=== PATIENT | male | born 1940 | race Caucasian/White ===

== ENCOUNTER 2017-10-27 08:36 | Day surgery (SDC) | payer OTHER ==
[~2017-10-27] VITALS: Ht 175.3 cm; Wt 90.7 kg
[~2017-10-27 08:36] MED LIST: AMIODARONE HCL100 MG PO; ASPIRIN325 MG PO; DILTIAZEM 24HR180 MG PO; MULTIVITAMINS1 EAC7 PO; VITAMIN D1000 UNIT PO
--- NOTE | 2017-10-28 09:08 | OR ---
[facility] [address] [place], [place] [address] Signed DATE OF OPERATION: 10/27/2017 SURGEON: Kennedy Elliott MD PREOPERATIVE DIAGNOSES: 1. Personal history of colonic polyps, 2011. 2. Diverticulosis. POSTOPERATIVE DIAGNOSES: 1. Moderate pandiverticulosis. 2. 4 mm polyp mid right colon. 3. 20 mm polyp at 45 cm (tattoo). 4. 15 mm polyp at 30 cm (tattoo). 5. Minimal internal anal skin tag. PROCEDURE: Colonoscopy with snare polypectomy at 45 and 30 cm with injection at both 45 and 30 cm and hot biopsies. ESTIMATED BLOOD LOSS: Minimal. INDICATIONS: Mimi is a 77-year-old gentleman who in 2012 had 14 colonic polyps removed through the [facility]. Several of which were adenomatous. He is also known to have diverticulosis. He said he has never had any sedation during the colonoscopy and therefore asked me to proceed without sedation. He was asked to come back every 5 years for repeat colonoscopy. He said he has good bowel movements. He has no lower GI complaints. There is no family history of colon cancer or polyps in the family. In the office, I gave him a pamphlet on colorectal polyps and cancer. He is very aware that the polyps grown become cancers. We also reviewed the written instructions for the bowel prep and we had him hold the aspirin for 3 days prior to the procedure. In addition, we discussed IV sedation at length. Again, he said he has done without any IV sedation and that is what he wanted me to do. He is well aware that if we get part way through the procedure, we have to add sedation. He is more than happy to do that. He also gave us the name and phone number of his brother to come pick him up if necessary. He also understands there is risk including, but not limited to gas bloating, crampy abdominal pain, bleeding, perforation, requiring surgery, and missed diagnosis. He had expressed understanding and wished to proceed. Electronically Signed By: KENNEDY ELLIOTT MD 10/28/17 0908 PATIENT NAME: MIMI OWENS KATH OPERATIVE REPORT DATE OF : 44 REPORT #: [id number] PHYSICIAN: KENNEDY ELLIOTT MD PCP: LUIS FELIPE BALLESTEROS MD REPORT IS CONFIDENTIAL AND NOT TO BE RELEASED WITHOUT AUTHORIZATION [address] [address] Signed PROCEDURE NOTE: Mimi was taken into our endoscopy suite and placed in the left lateral decubitus position. He was given no IV sedation at his request. A digital rectal exam was performed and he does have a slightly enlarged indurated prostate, but no dominant nodules. The adult colonoscope was introduced and advanced all around into the cecum under direct visualization of the camera. He actually tolerated that quite well. His prep was good. The scope was slowly withdrawn. We can easily see the Grindstone's foot and ileocecal valve. We took out a 4 mm polyp in mid right colon with a hot biopsy forceps. We noticed that he has moderate diverticula throughout the colon back at 45 cm. He had a fairly large polyp every bit of 20 mm. It took three bites of the snare to get it all completely. We used our basket and captured most if not all of that polyp. There was good hemostasis at the base of the polyp. We went ahead and injected some tattoo at that area to reggie its location. During that process of using the cautery, he did get a little nauseated and diaphoretic, so it took a couple of minutes to pause the procedure. We gave him some Zofran, which helped. The scope was withdrawn further and back at 30 cm. Another large polyp probably 15 mm in diameter, maybe larger and we got our snare over that a bit easier and took it off all in one piece. We suctioned it onto the scope and we were able to remove it, sent it off to the pathology Department and again we went back with the camera and placed a tattoo at 30 cm. Right next to 30 cm polyp, was a tiny 3 mm polyp at 20 cm. I simply burned that with a hot biopsy forceps. The rectum itself was unremarkable. Upon retroflexion of the scope, he had just a tiny internal anal skin tag. After that, the gas was suctioned out and the colonoscope removed. Overall, Mimi tolerated the procedure amazingly well. RECOMMENDATIONS: We will have Mimi resume his aspirin in 1 week. He will follow up my office in 7 to 14 days to review his results. He might consider a short interval followup either months out to as much as 18 months to reassess the colon, make sure all his polyps have been removed. Kennedy Elliott MD ALB/ESTRELLITAL /[id number] cc: Luis Felipe Ballesteros MD Electronically Signed By: KENNEDY ELLIOTT MD 10/28/17 0908 PATIENT NAME: MIMI OWENS KATH OPERATIVE REPORT DATE OF : 44 REPORT #: [id number] PHYSICIAN: KENNEDY ELLIOTT MD PCP: LUIS FELIPE BALLESTEROS MD REPORT IS CONFIDENTIAL AND NOT TO BE RELEASED WITHOUT AUTHORIZATION [place] [address] [place] [place], [place] [address] Signed Kennedy Elliott MD Copies: LUIS FELIPE BALLESTEROS MD, ANDREW L MD ~ Electronically Signed By: KENNEDY ELLIOTT MD 10/28/17 0908 PATIENT NAME: MIMI OWENS OPERATIVE REPORT DATE OF : 44 REPORT #: [id number] PHYSICIAN: KENNEDY ELLIOTT MD PCP: LUIS FELIPE BALLESTEROS MD REPORT IS CONFIDENTIAL AND NOT TO BE RELEASED WITHOUT AUTHORIZATION
== END 2017-10-27 18:00 | disposition home or self-care (01) ==
LOC: OPS 08:36 → DS 08:36 → OPS 09:45
PROVIDERS: Colon & Rectal Surgery
PROC: 0DBK8ZZ Excision of Ascending Colon, Via Natural or Artificial Opening Endoscopic (ICD-10-PCS; 2017-10-27)
PROC: 3E0H8GC Introduction of Other Therapeutic Substance into Lower GI, Via Natural or Artificial Opening Endoscopic (ICD-10-PCS; 2017-10-27)
PROC: 0DBE8ZZ Excision of Large Intestine, Via Natural or Artificial Opening Endoscopic (ICD-10-PCS; principal; 2017-10-27 09:45)
DX: Z12.11 Encounter for screening for malignant neoplasm of colon (principal); D12.2 Benign neoplasm of ascending colon; D12.6 Benign neoplasm of colon, unspecified; K64.4 Residual hemorrhoidal skin tags; K57.30 Diverticulosis of large intestine without perforation or abscess without bleeding; I10 Essential (primary) hypertension; E78.5 Hyperlipidemia, unspecified; E55.9 Vitamin D deficiency, unspecified; I48.91 Unspecified atrial fibrillation; K21.9 Gastro-esophageal reflux disease without esophagitis; F41.9 Anxiety disorder, unspecified; Z98.890 Other specified postprocedural states; Z79.82 Long term (current) use of aspirin; Z79.899 Other long term (current) drug therapy
CPT/HCPCS: 88305; J2250; J2405; J3010

== ENCOUNTER 2019-05-03 09:54 | Day surgery (SDC) | payer OTHER ==
[~2019-05-03] VITALS: Ht 175.3 cm; Wt 90.7 kg
--- NOTE | 2019-05-04 07:28 | OR ---
[facility] [address] [place], [place] [address] Signed DATE OF OPERATION: 05/03/2019 SURGEON: Kennedy Elliott MD PREOPERATIVE DIAGNOSES: 1. Personal history of colonic polyps in 2012 and 2018. 2. Bourgeois diverticulosis. 3. Internal anal skin tags. 4. Tattoos at 30 and 45 cm. POSTOPERATIVE DIAGNOSES: 1. 4 mm polypoid lesion at 30 cm. 2. 4 mm polyp, distal right colon. 3. 4 mm polyp, mid transverse colon. 4. Moderate pandiverticulosis. 5. Small internal anal skin tags. PROCEDURE PERFORMED: Colonoscopy with hot biopsy. ESTIMATED BLOOD LOSS: None. INDICATIONS: Mimi is a 78-year-old gentleman who actually looked younger than his stated age. He just spent 6 weeks up in the [facility] [place]. He said he enjoys that very much. He maintains good functional status and muscle mass. He had 14 colonic polyps removed through his [facility] in 2011. Some of those were adenomatous. He also had diverticulosis. Amazingly, he never had IV sedation during the first colonoscopy. When he came to us in 2018, he insisted no IV sedation and he actually did very well. We did give him Zofran midway through that procedure that did help him. Once again he has moderate pandiverticulosis along with his minimal internal skin tags. He had a significant polyp removed at 30 cm and one at 45 cm. We left tattoos at both these areas. They were both tubulovillous adenomatous polyps measuring 15 to 20 mm in size. We also took a small adenomatous polyp out of his mid right colon. I had explained to Mimi that polyps grow and become cancer over 8 to 12 years. We decided to bring him back in a short interval and make sure the two areas at 30 and 45 cm were completely relieved of all polyps. We also reviewed diverticulosis in the office. He wanted another brochure on diverticulosis, which we provided to him. I have encouraged him once again to use a fiber supplement such as Benefiber, Citrucel, or Metamucil and add Electronically Signed By: KENNEDY ELLIOTT MD 05/04/19 0728 PATIENT NAME: MIMI OWENS OPERATIVE REPORT DATE OF : 44 REPORT #: [id number] PHYSICIAN: KENNEDY ELLIOTT MD PCP: LUIS FELIPE BALLESTEROS MD REPORT IS CONFIDENTIAL AND NOT TO BE RELEASED WITHOUT AUTHORIZATION [facility] [address] [place], [place] [address] Signed that to his daily regimen. He is in chronic atrial fibrillation, on aspirin. However today he was in sinus rhythm. We did have him hold the aspirin 3 days prior to the procedure. Since he had biopsies, he will hold it one week afterwards. He has no family history of colon cancer or polyps. Once again, he insisted no IV sedation. We did decide to give him 8 mg of Zofran in the preop area. That seemed to help significantly today. He had expressed understanding and wished to proceed. PROCEDURE NOTE: Mimi was taken into our endoscopy suite and placed in the left lateral decubitus position. Again, no IV sedation was given. He did receive 8 mg of Zofran preoperatively. A digital rectal exam was performed and he does have a slightly enlarged and indurated prostate gland. The left is slightly more prominent than the right. The adult colonoscope was then introduced and advanced all around into the cecum under direct visualization of the camera without difficulty. Fortunately, Mimi is quite easy to pass the scope. His prep was good. Just a few areas of liquid particulate stool matter, most of which was suctioned out. The scope was slowly withdrawn. We took out a 4 mm polyp in the distal right colon and in the mid transverse colon. We could easily see his two tattoos at 45 and 30 cm. 45 cm was unremarkable. There was a little bit of a polypoid area at 30 cm, although we think it is probably fine. We went ahead and biopsied that and destroyed it completely with hot biopsy forceps. Once again he has moderate pandiverticulosis. Once in the rectum, the scope had been retroflexed and again he has just some very small internal anal skin tags. The gas was then suctioned out and the colonoscope removed. Mimi tolerated the procedure quite well and talk to us the whole time. He only moaned a little when we came around hepatic flexure and down into the cecum itself. After this, the gas had been suctioned out and the colonoscope removed. Again, Mimi tolerated the procedure quite well. RECOMMENDATIONS: I will see Mimi back in my office in 7 to 14 days to review his results. He is welcome to follow up anywhere from 3 to 5 years. He thought maybe at his age he might not do any more colonoscopies. We will address that once again in the office. MD YLLY Diez/ESTRELLITAL /[id number] Electronically Signed By: KENNEDY ELLIOTT MD 05/04/19 0728 PATIENT NAME: MIMI OWENS OPERATIVE REPORT DATE OF : 44 REPORT #: [id number] PHYSICIAN: KENNEDY ELLIOTT MD PCP: LUIS FELIPE BALLESTEROS MD REPORT IS CONFIDENTIAL AND NOT TO BE RELEASED WITHOUT AUTHORIZATION [address] [address] Signed cc: MD Luis Felipe Diez MD Copies: KENNEDY ELLIOTT MD, MICAIAH MATTHEW MD ~ Electronically Signed By: KENNEDY ELLIOTT MD 05/04/19 0728 PATIENT NAME: MIMI OWENS OPERATIVE REPORT DATE OF : 44 REPORT #: [id number] PHYSICIAN: KENNEDY ELLIOTT MD PCP: LUIS FELIPE BALLESTEROS MD REPORT IS CONFIDENTIAL AND NOT TO BE RELEASED WITHOUT AUTHORIZATION
--- NOTE | 2019-05-04 15:59 | PATH ---
[facility] [address] [place], [place] [address] Signed SPECIMEN(S): A COLON POLYP AT 30 CM SPECIMEN(S): B MID TRANSVERSE POLYP SPECIMEN(S): C DISTAL ASCENDING POLYP SPECIMEN SOURCE: A. COLON POLYP AT 30 CM B. MID TRANSVERSE POLYP C. DISTAL ASCENDING POLYP CLINICAL HISTORY: Hx: Diverticulosis and polyps. Postop: Diverticulosis, colon polyps. MICROSCOPIC DESCRIPTION: Histologic sections of all submitted blocks are examined by light microscopy. These findings, together with the gross examination, support the pathologic diagnosis. FINAL PATHOLOGIC DIAGNOSIS: A. Mucosa, colon at 30 cm, biopsy: - Surface features consistent with hyperplastic polyp (See comment). B. Mucosa, mid transverse colon, biopsy: - Surface features suggestive but not entirely diagnostic of hyperplastic polyp (See comment). C. Mucosa, distal ascending colon, biopsy: - Tubular adenoma. COMMENT: A and B Multiple sections over three slides are examined. No adenomatous change or full thickness hyperplastic change is seen. LJA:cml:C2NR GROSS DESCRIPTION: Three specimens are received in three containers, labeled "MILA." A. The specimen, labeled "MILA, colon polyp at 30 cm," is received in formalin and consists of a single 0.3 cm jj fragment. Specimen is entirely submitted in cassette (A1). B. The specimen, labeled "MILA, mid transverse colon polyp," is received in formalin and consists of three, 0.2-0.3 cm jj fragments. Specimen is entirely submitted in cassette (B1). C. The specimen, labeled "MILA, distal ascending colon polyp," is received in formalin and consists of a single 0.3 cm jj-brown tissue fragment Specimen is entirely submitted in cassette (C1). PATIENT NAME: MIMI OWENS PATHOLOGY DATE OF : 44 REPORT #: [id number] PHYSICIAN: ANDREA PATHOLOGY PCP: LUIS FELIPE BALLESTEROS MD REPORT IS CONFIDENTIAL AND NOT TO BE RELEASED WITHOUT AUTHORIZATION [facility] [address] [place] [address] Signed AM (under the direct supervision of a pathologist) The Gross Description was prepared using a voice recognition system. The report was reviewed for accuracy; however, sound-alike word errors, addition and/or deletions may occur. If there is any question about this report, please contact Client Services. PERFORMING LABORATORY: The technical component was performed by [facility] [address] (Environmental Services Attendant: Carmencita Toribio MD; CLIA# [id number]). Professional interpretation was performed by [facility], [address] [address] (Environmental Services Attendant: Richi Mckeon MD; CLIA# [id number]). Diagnostician: Richi Mckeon MD Pathologist Electronically Signed 05/04/2019 Copies: ~ PATIENT NAME: MIMI OWENS PATHOLOGY DATE OF : 44 REPORT #: [id number] PHYSICIAN: ANDREA LOMAX PCP: LUIS FELIPE BALLESTEROS MD REPORT IS CONFIDENTIAL AND NOT TO BE RELEASED WITHOUT AUTHORIZATION
== END 2019-05-03 12:20 | disposition home or self-care (01) ==
LOC: DS 09:54
PROVIDERS: Colon & Rectal Surgery
PROC: 0DBK8ZZ Excision of Ascending Colon, Via Natural or Artificial Opening Endoscopic (ICD-10-PCS; 2019-05-03)
PROC: 0DBE8ZZ Excision of Large Intestine, Via Natural or Artificial Opening Endoscopic (ICD-10-PCS; 2019-05-03)
PROC: 0DBL8ZZ Excision of Transverse Colon, Via Natural or Artificial Opening Endoscopic (ICD-10-PCS; principal; 2019-05-03 10:30)
DX: D12.2 Benign neoplasm of ascending colon (principal); K63.5 Polyp of colon; K57.30 Diverticulosis of large intestine without perforation or abscess without bleeding; K64.8 Other hemorrhoids; K64.4 Residual hemorrhoidal skin tags; I10 Essential (primary) hypertension; K21.9 Gastro-esophageal reflux disease without esophagitis; E78.5 Hyperlipidemia, unspecified; E55.9 Vitamin D deficiency, unspecified; Z98.890 Other specified postprocedural states; Z79.899 Other long term (current) drug therapy; Z79.82 Long term (current) use of aspirin
CPT/HCPCS: J2405; J7120

== ENCOUNTER 2023-08-19 03:30 | Emergency (ER) | payer OTHER ==
[~2023-08-19] VITALS: Ht 175.3 cm; Wt 88.7 kg
[~2023-08-19 03:30] MED LIST changes: -AMIODARONE HCL100 MG PO; +FLOMAX0.4 MG PO; -MULTIVITAMINS1 EAC7 PO; +PACERONE200 MG PO; +STRESS B WITH1 EACH PO
--- OUTSIDE RECORDS SUMMARY | 2023-08-19 03:39 | XMS ---
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 Samina has no Care Guidelines for this patient. Keesha VISIT COUNT (12 MO.) [address] [facility] [place] TOTAL 3 NOTE: Visits indicate total known visits. ED/C VISIT TRACKING (12 MO.) 08/19/2023 03:[address] [facility] [place] TYPE: Emergency COMPLAINT: - CATHETER PROBLEM 08/18/2023 07:29 [facility] [place] TYPE: Emergency COMPLAINT: - DIFFICULTY URINATING, BLOOD IN URINE 10/31/2022 07:47 [facility] [place] TYPE: Emergency COMPLAINT: - FALL, R HIP PAIN INPATIENT VISIT TRACKING (12 MO.) 10/31/2022 12:33 [facility] [place] TYPE: Medical Surgical COMPLAINT: - RIGHT HIP FRACTURE DIAGNOSES: - Contact with and (suspected) exposure to COVID-19 - Contact with and (suspected) exposure to COVID-19 - Disorder of kidney and ureter, unspecified - Disorder of kidney and ureter, unspecified - Exposure to other specified factors, initial encounter - Exposure to other specified factors, initial encounter - Fracture of unspecified part of neck of right femur, initial encounter for closed fracture - MCC (current) use of aspirin - cafe helper (current) use of aspirin - Nondisplaced fracture of anterior wall of right acetabulum, initial encounter for closed fracture - Nondisplaced fracture of anterior wall of right acetabulum, initial encounter for closed fracture - Other manager law (current) drug therapy - Other mcc (current) drug therapy - Syncope and collapse - Syncope and collapse - Unspecified atrial fibrillation - Unspecified atrial fibrillation - Unspecified place in unspecified non-institutional (private) residence as the place of occurrence of the external cause - Unspecified place in unspecified non-institutional (private) residence as the place of occurrence of the external cause [email or web address]
[2023-08-19] MEDS ORDERED: LIDOCAINE 2% VISCOUS 6 ML SYR TOP ONE (04:00)
[2023-08-19 05:16] VITALS: BP 125/65
== END 2023-08-19 05:10 | disposition home or self-care (01) ==
LOC: ED 03:30
DX: T83.091A Other mechanical complication of indwelling urethral catheter, initial encounter (principal); R31.9 Hematuria, unspecified; Y73.2 Prosthetic and other implants, materials and accessory gastroenterology and urology devices associated with adverse incidents; I48.91 Unspecified atrial fibrillation; Z79.82 Long term (current) use of aspirin; Z79.899 Other long term (current) drug therapy
CPT/HCPCS: 51702; 51798; 99283

== ENCOUNTER 2023-08-19 11:46 | Emergency (ER) | payer OTHER ==
[~2023-08-19] VITALS: Ht 175.3 cm; Wt 88.7 kg
--- OUTSIDE RECORDS SUMMARY | 2023-08-19 11:55 | XMS ---
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 Samina has no Care Guidelines for this patient. Keesha VISIT COUNT (12 MO.) [address] [facility] [address] [facility] [place] TOTAL 4 NOTE: Visits indicate total known visits. ED/C VISIT TRACKING (12 MO.) 08/19/2023 11:46 [facility] [place] TYPE: Emergency COMPLAINT: - CATHETER ISSUE 08/19/2023 03:31 [facility] [place] TYPE: Emergency COMPLAINT: - CATHETER PROBLEM 08/18/2023 07:29 [facility] [place] TYPE: Emergency COMPLAINT: - DIFFICULTY URINATING, BLOOD IN URINE 10/31/2022 07:[address] [facility] [address] [facility] [place] TYPE: Emergency COMPLAINT: - FALL, R HIP PAIN INPATIENT VISIT TRACKING (12 MO.) 10/31/2022 12:[address] [facility] [place] TYPE: Medical Surgical COMPLAINT: - RIGHT [...] femur, initial encounter for closed fracture - half-way (current) use of aspirin - long term (current) use of aspirin - Nondisplaced fracture of anterior wall of right acetabulum, initial encounter for closed fracture - Nondisplaced fracture of anterior wall of right acetabulum, initial encounter for closed fracture - Other custodial (current) drug therapy - Other custodial (current) drug therapy - Syncope and collapse - Syncope and collapse - Unspecified atrial fibrillation - Unspecified atrial fibrillation - Unspecified place in unspecified non-institutional (private) residence as the place of occurrence of the external cause - Unspecified place in unspecified non-institutional (private) residence as the place of occurrence of the external cause [email or web address]
[2023-08-19 13:06] LABS: BASOPHILS 0.7 % (0-2); EOSINOPHILS 0.6 % (0-6); HEMATOCRIT 37.5 % (35.0-50.0); LYMPHOCYTES 18.1 % (24-44); MCH 31.4 (27-36); MCHC 34.8 g/dl (30-36); MCV 90.3 fl (81-99); MONOCYTES 9.6 % (0-12); PLATELET COUNT 169 K/uL (140-440); RBC 4.15 M/ul (4.3-5.7)
[2023-08-19 13:14] LABS: INR 0.98 (0.80-1.30); PROTIME 12.6 Sec (11.2-14.2)
[2023-08-19] MEDS ORDERED: LIDOCAINE 2% VISCOUS 6 ML SYR TOP ONE (13:15)
[2023-08-19 13:16] LABS: PARTIAL THROMBOPLASTIN TIME 20.1 Sec (22.9-41.3)
[2023-08-19 13:20] LABS: ALBUMIN 3.1 g/dL (3.4-5.0); ALBUMIN/GLOBULIN RATIO 0.84 (1.1-2.4); ANION GAP 12.5 (7-21); BILIRUBIN, TOTAL 0.5 ng/dL (0.2-1.0); BUN/CREATININE RATIO 14.7 (6.0-28.6); CALCIUM 8.7 mg/dL (8.5-10.1); CREATININE, SERUM 1.02 mg/dL (0.70-1.30); POTASSIUM 3.5 mmol/L (3.5-5.1); PROTEIN, TOTAL 6.8 g/dL (6.4-8.2)
[2023-08-19 15:31] VITALS: BP 130/64
== END 2023-08-19 15:33 | disposition home or self-care (01) ==
LOC: ED 11:46
PROVIDERS: Emergency Medicine
DX: R31.0 Gross hematuria (principal); T83.098A Other mechanical complication of other urinary catheter, initial encounter; I48.91 Unspecified atrial fibrillation; Z79.899 Other long term (current) drug therapy; Z79.82 Long term (current) use of aspirin
CPT/HCPCS: 36415; 51702; 74178; 80053; 85025; 85610; 85730; 99284-25; Q9967

== ENCOUNTER 2023-08-24 06:55 | Day surgery (SDC) | payer OTHER ==
[~2023-08-24] VITALS: Ht 175.3 cm; Wt 89.5 kg
[~2023-08-24 06:55] MED LIST changes: +LACTATED RINGER'S 1,000 ML IV SCH
[2023-08-24] MEDS ORDERED: IBLOOD GLUCOSE TEST STRIP 1 EA TEST VI PRN ×2 (07:00→12:15)
[2023-08-24] MEDS ORDERED: mitoMYcin 40 MG/20 ML VIAL BLADIN SCH (07:00)
[2023-08-24] MEDS ORDERED: LIDOCAINE HCL 1% 5 ML SDV INJ ONE (07:00)
[2023-08-24 07:23] VITALS: BP 114/72
[2023-08-24] MEDS ORDERED: CIPROFLOXACIN500 MG PO (07:29)
[2023-08-24] MEDS ORDERED: OXYCODONE/APAP 5/325 TAB PO PRN (07:30)
[2023-08-24] MEDS ORDERED: PHENAZOPYRIDINE HCL 95 MG TAB PO PRN (07:30)
[2023-08-24] MEDS ORDERED: PROMETHAZINE HCL 25 MG TAB PO PRN (07:30)
[2023-08-24] MEDS ORDERED: HYDROmorphone HCL 1 MG/ML SYR IV PRN ×2 (07:30→12:15)
[2023-08-24] MEDS ORDERED: ondansetron HCL 4 MG/2 ML VIAL IV PRN ×2 (07:30→12:15)
[2023-08-24] MEDS ORDERED: CEFAZOLIN SODIUM 2 GM/20 ML SYR IV ONE (08:00)
[2023-08-24] MEDS ORDERED: LIDOCAINE HCL 2% 5 ML SDV ONE (09:05)
[2023-08-24] MEDS ORDERED: propofoL 200 MG/20 ML VIAL ONE (09:05)
[2023-08-24] MEDS ORDERED: fentaNYL citrate 100 MCG/2 ML VIAL ONE (09:05)
[2023-08-24] MEDS ORDERED: ondansetron HCL 4 MG/2 ML VIAL ONE (09:05)
[2023-08-24] MEDS ORDERED: ROCURONIUM BROMIDE 50 MG/5 ML SYR ONE (11:50)
[2023-08-24] MEDS ORDERED: SUGAMMADEX SODIUM 200 MG/2 ML ML ONE (11:56)
[2023-08-24] MEDS ORDERED: PROCHLORPERAZINE EDISYLATE 10 MG/2 ML VIAL IV PRN (12:15)
[2023-08-24] MEDS ORDERED: fentaNYL citrate 100 MCG/2 ML VIAL IV PRN (12:15)
[2023-08-24] MEDS ORDERED: NALOXONE HCL 0.4 MG SYR IV PRN (12:15)
[2023-08-24] MEDS ORDERED: droPERidol 5 MG/2 ML VIAL IV PRN (12:15)
[2023-08-24 12:42] VITALS: BP 105/63
[2023-08-24 13:35] VITALS: BP 120/62
[2023-08-24 14:35] VITALS: BP 113/55
--- NOTE | 2023-08-25 11:45 | OR ---
[facility] [address] [facility] [place], [place] [address] Signed DATE OF OPERATION: 08/24/2023 SURGEON: Moncho Santos MD PREOPERATIVE DIAGNOSIS: Persistent gross hematuria with associated clot retention. POSTOPERATIVE DIAGNOSES: 1. Persistent gross hematuria with associated clot retention. 2. 0.5 cm bladder mass present on the left posterolateral wall of the bladder. 3. Wide-open prostatic urethra. NAMES OF PROCEDURES: 1. Diagnostic cystourethroscopy. 2. Urethral dilation using Sina sounds from 18-Israeli to 28-Israeli. 3. Transurethral resection of bladder tumor-small. ANESTHESIA: General. ESTIMATED BLOOD LOSS: Minimal. COMPLICATIONS: None. SPECIMENS: Fragments of resected bladder lesion sent to pathology for evaluation. DRAINS: None. INDICATIONS FOR PROCEDURE: Mr. Flowers is a very pleasant 82-year-old gentleman with no prior history of tobacco use, who experienced sudden onset of painless gross hematuria not quite one week ago. He was seen in the emergency department three times because he ultimately went into clot retention and required placement of an indwelling Austin catheter along with bladder irrigation. His Austin catheter was subsequently increased in size due to repeated clots present in his indwelling Austin catheter. On his initial evaluation in the emergency department, he was noted to have nitrite positive urine, however, he was not given any Electronically Signed By: MONCHO SANTOS MD 08/25/23 1145 PATIENT NAME: MIMI FLOWERS OPERATIVE REPORT DATE OF : 44 REPORT #: [id number] PHYSICIAN: MONCHO SANTOS MD PCP: LUIS FELIPE BALLESTEROS MD REPORT IS CONFIDENTIAL AND NOT TO BE RELEASED WITHOUT AUTHORIZATION [facility] [address] [place], [place] [address] Signed oral antibiotics. This morning, his urine has cleared, however, his Austin catheter is still in place. After discussion of the risks and benefits of the procedure, the patient agreed to undergo diagnostic cystoscopy with blood clot evacuation and possible TURP versus TURBT. OPERATIVE FINDINGS: 1. On cystoscopy, the patient has diffuse grade 1 bladder wall trabeculation. I do not see any obvious very large bladder masses present as indicated by the patient's recent CT scan. I suspect this was a very large well organized blood clot. However, I do see a 5 mm bladder lesion that is smooth in appearance, however, it does appear to protrude into the bladder lumen. It is not papillary in nature. This was resected completely under direct visualization today. There was no evidence of any other suspicious lesions present within the patient's bladder. 2. Urethroscopy reveals a wide-open bladder neck and a very short distance from the bladder neck to verumontanum. I do not appreciate any significant lateral lobes or median lobe of the prostate. DESCRIPTION OF PROCEDURE: After informed consent was obtained, the patient was taken back to the operating room. He was transferred from the [facility] to the operating room table, where general anesthesia was induced. He was placed in the dorsal lithotomy position and his genitalia were prepped and draped in standard sterile fashion. Using a 30-degree lens on a 22.5-Israeli introducer, rigid cystoscope was inserted through his urethra and into his bladder under direct visualization. Panendoscopic views of the bladder were then obtained. Please see the above findings. I noted what appeared to be a submucosal smooth lesion measuring around 5 mm protruding a little bit into the bladder lumen. I suspect it is due to Austin catheter trauma to the mucosa. However, I have decided to go ahead and resect it out of an abundance of caution. This lesion was resected transurethrally and placed in a specimen cup to be sent to pathology for evaluation. The area of resection was then thoroughly cauterized using the bipolar loop. I then appreciated detrusor muscle fibers present where I had resected. There are couple of other areas of erythema, likely related to Austin catheter trauma. These were cauterized using the loop. His bilateral ureteral orifices were noted to be in their normal anatomic location and effluxing clear urine. Once I was satisfied that I saw no other suspicious lesions and that the only suspicious lesion was completely resected, I did irrigate all of the tissue from the patient's bladder using a George syringe. This was placed in a specimen cup to be sent to pathology for evaluation. There was no obvious bleeding present within the bladder upon my exit near the end of this procedure. The resectoscope was removed after the patient's bladder had been thoroughly irrigated. The camera was then removed completely. I chose not to reinsert a Austin catheter as the patient has no obvious BPH and the tumor resection was relatively small, so I am confident he will not experience any complication related to voiding on his own. The Electronically Signed By: MONCHO SANTOS MD 08/25/23 1145 PATIENT NAME: MIMI FLOWERS OPERATIVE REPORT DATE OF : 44 REPORT #: [id number] PHYSICIAN: MONCHO SANTOS MD PCP: LUIS FELIPE BALLESTEROS MD REPORT IS CONFIDENTIAL AND NOT TO BE RELEASED WITHOUT AUTHORIZATION [address] [address] Signed procedure was then terminated. The patient tolerated the procedure well without any complication. He will now be transferred to postanesthesia care unit in stable condition. DISPOSITION: I discussed the details of today's procedure with the patient and answered all of his questions. I did notify him that I did find a lesion within his bladder, however, it was not the 5 x 2 cm lesion as indicated on his recent CT scan. I suspect this 5 cm area was well organized blood clot. I will telephone him with the results of the pathology obtained from the lesion removed today. Otherwise, he will go home today without a Austin catheter. He must void prior to his discharge today. He has been told to finish out his existing Cipro 500 mg p.o. b.i.d. prescription and he was also given oxycodone 5 mg one tablet p.o. q.6 p.r.n. pain, dispense #15 tablets. He will be scheduled return to clinic in a little over one month with a PVR for his 1st postoperative evaluation. MD REBEKAH Mendez/LUIGI /[id number] Copies: ~ Electronically Signed By: MONCHO SANTOS MD 08/25/23 1145 PATIENT NAME: MIMI FLOWERS OPERATIVE REPORT DATE OF : 44 REPORT #: [id number] PHYSICIAN: MONCHO SANTOS MD PCP: LUIS FELIPE BALLESTEROS MD REPORT IS CONFIDENTIAL AND NOT TO BE RELEASED WITHOUT AUTHORIZATION
== END 2023-08-24 14:50 | disposition home or self-care (01) ==
LOC: DS 06:55
PROVIDERS: ATTEND Urology
PROC: 0TBB8ZZ Excision of Bladder, Via Natural or Artificial Opening Endoscopic (ICD-10-PCS; principal; 2023-08-24 08:20)
DX: N32.89 Other specified disorders of bladder (principal); R31.0 Gross hematuria; R33.8 Other retention of urine
CPT/HCPCS: 00910; 88305; 88307; J0690; J2001; J2405; J2704; J3010; J3490; J7121